=== PATIENT | female | born 1945 | race Caucasian/White ===

== ENCOUNTER → 2023-12-12 13:58 | Outpatient (REF) | payer OTHER, SELFPAY ==
[2023-12-12 16:15] LABS: % Basophils 0.6 % (0-2); % Immature Granulocytes 0.2 % (0-0.5); % Lymphocytes 33.6 % (20.5-51.1); % Neutrophils 55.6 % (42.2-75.2); Absolute Basophils 0.1 10^3/uL (0-0.2); Absolute Eosinophils 0.2 10^3/uL (0-0.7); Absolute Monocytes 0.7 10^3/uL (0.1-0.6); Absolute Neutrophils 4.9 10^3/uL (1.4-6.5); Hematocrit 43.4 % (37.0-47.0); Hemoglobin 14.6 g/dL (12.0-16.0); Mean Corp Hgb Conc. 33.6 g/dL (33.0-37.0); Mean Corpuscular Volume 86.3 fL (81.0-99.0); Mean Platelet Volume 10.7 fL (7.4-10.4); Nucleated Red Blood Cells % 0 %; Platelet Count 291 10^3/uL (130-400); Red Blood Cell Count 5.03 10^6/uL (4.20-5.40); Red Cell Dist. Width 14.8 % (11.5-14.5); White Blood Cell Count 8.8 10^3/uL (4.8-10.8)
[2023-12-12 16:43] LABS: ALT (SGPT) 23 U/L (0-35); AST (SGOT) 32 U/L (14-36); Albumin 4.3 g/dl (3.5-5.0); Alkaline Phosphatase 87 U/L (38-126); Blood Urea Nitrogen 13 mg/dl (7-17); Calcium 9.7 mg/dl (8.4-10.2); Carbon Dioxide 29 mmol/L (22-30); Chloride 102 mmol/L (98-107); Glucose 92 mg/dl (70-99); HDL Cholesterol 63 mg/dl; LDL Cholesterol, Calculated 31 mg/dl; Potassium 3.9 mmol/L (3.5-5.1); Sodium 138 mmol/L (135-145); Total Bilirubin 0.5 mg/dl (0.2-1.3); Total Cholesterol 134 mg/dl (50-199); Total Protein 7.1 g/dl (6.3-8.2); Triglyceride 203 mg/dl (10-149); Very Low Density Lipoprotein 40 mg/dl (0-30); eGFR > 60.00
[2023-12-12 17:11] LABS: TSH Reflex To Free T4 2.21 uIU/ml (0.47-4.68)
== END ==
LOC: REG 13:58
PROVIDERS: ATTENDING PHYSICIAN Nurse Practitioner Family
DX: Z09 Encounter for follow-up examination after completed treatment for conditions other than malignant neoplasm (principal); J10.1 Influenza due to other identified influenza virus with other respiratory manifestations; R35.0 Frequency of micturition; R53.1 Weakness
CPT/HCPCS: 36415; 80053; 80061; 84443; 85025

== ENCOUNTER → 2024-10-11 10:22 | Outpatient (REF) | payer OTHER, SELFPAY ==
[2024-10-11 11:32] LABS: % Basophils 0.4 % (0-2); % Eosinophils 0.4 % (0-6); % Immature Granulocytes 0.3 % (0-0.5); % Lymphocytes 19.9 % (20.5-51.1); % Monocytes 7.5 % (1.7-9.3); % Neutrophils 71.5 % (42.2-75.2); Absolute Lymphocytes 2.2 10^3/uL (1.2-3.4); Absolute Monocytes 0.8 10^3/uL (0.1-0.6); Absolute Neutrophils 8.1 10^3/uL (1.4-6.5); Hematocrit 48.7 % (37.0-47.0); Hemoglobin 16.1 g/dL (12.0-16.0); Mean Corp Hgb Conc. 33.1 g/dL (33.0-37.0); Mean Corpuscular Hgb 28.9 pg (27.0-31.0); Mean Corpuscular Volume 87.4 fL (81.0-99.0); Mean Platelet Volume 10.1 fL (7.4-10.4); Nucleated Red Blood Cells % 0 %; Platelet Count 312 10^3/uL (130-400); Red Blood Cell Count 5.57 10^6/uL (4.20-5.40); Red Cell Dist. Width 13.1 % (11.5-14.5); White Blood Cell Count 11.2 10^3/uL (4.8-10.8)
[2024-10-11 12:41] LABS: Glycohemoglobin (HgbA1c) 5.6 % (4.0-5.6)
[2024-10-11 14:24] LABS: TSH Reflex To Free T4 3.68 uIU/ml (0.47-4.68)
[2024-10-11 14:43] LABS: Vitamin B12 537 pg/ml (239-931)
== END ==
LOC: REG 10:22
PROVIDERS: ATTENDING PHYSICIAN Nurse Practitioner Primary Care
DX: R41.0 Disorientation, unspecified (principal); R53.83 Other fatigue; R73.03 Prediabetes; K86.2 Cyst of pancreas
CPT/HCPCS: 36415; 82607; 83036; 84443; 85025

== ENCOUNTER → 2024-10-16 10:53 | Outpatient (REF) | payer OTHER, SELFPAY ==
[2024-10-16 12:43] LABS: ALT (SGPT) 30 U/L (0-35); AST (SGOT) 35 U/L (14-36); Albumin 4.9 g/dl (3.5-5.0); Alkaline Phosphatase 79 U/L (38-126); Blood Urea Nitrogen 16 mg/dl (7-17); Calcium 10.8 mg/dl (8.4-10.2); Carbon Dioxide 24 mmol/L (22-30); Chloride 100 mmol/L (98-107); Glucose 106 mg/dl (70-99); Potassium 4.8 mmol/L (3.5-5.1); Sodium 137 mmol/L (135-145); Total Bilirubin 0.5 mg/dl (0.2-1.3); Total Protein 7.6 g/dl (6.3-8.2); eGFR 51.75
== END ==
LOC: REG 10:53
PROVIDERS: ATTENDING PHYSICIAN Nurse Practitioner Primary Care
DX: E78.2 Mixed hyperlipidemia (principal)
CPT/HCPCS: 36415; 80053

== ENCOUNTER → 2024-11-01 11:08 | Outpatient (REF) | payer OTHER, SELFPAY ==
[2024-11-01 11:54] LABS: Ionized Calcium 1.28 mMOL/L (1.15-1.33)
[2024-11-01 11:55] LABS: % Basophils 0.2 % (0-2); % Eosinophils 0.7 % (0-6); % Immature Granulocytes 0.4 % (0-0.5); % Lymphocytes 24.2 % (20.5-51.1); % Monocytes 8.3 % (1.7-9.3); % Neutrophils 66.2 % (42.2-75.2); Absolute Eosinophils 0.1 10^3/uL (0-0.7); Absolute Lymphocytes 2.4 10^3/uL (1.2-3.4); Absolute Monocytes 0.8 10^3/uL (0.1-0.6); Absolute Neutrophils 6.7 10^3/uL (1.4-6.5); Hematocrit 45.2 % (37.0-47.0); Hemoglobin 15.4 g/dL (12.0-16.0); Mean Corp Hgb Conc. 34.1 g/dL (33.0-37.0); Mean Corpuscular Hgb 29.3 pg (27.0-31.0); Mean Corpuscular Volume 86.1 fL (81.0-99.0); Mean Platelet Volume 10.7 fL (7.4-10.4); Nucleated Red Blood Cells % 0 %; Platelet Count 243 10^3/uL (130-400); Red Blood Cell Count 5.25 10^6/uL (4.20-5.40); Red Cell Dist. Width 13.2 % (11.5-14.5); White Blood Cell Count 10.1 10^3/uL (4.8-10.8)
[2024-11-01 12:33] LABS: C-Reactive Protein < 5.00 mg/L (0.0-10.00)
[2024-11-01 12:34] LABS: ALT (SGPT) 21 U/L (0-35); AST (SGOT) 26 U/L (14-36); Albumin 4.4 g/dl (3.5-5.0); Alkaline Phosphatase 83 U/L (38-126); Blood Urea Nitrogen 16 mg/dl (7-17); Calcium 10.2 mg/dl (8.4-10.2); Carbon Dioxide 24 mmol/L (22-30); Chloride 104 mmol/L (98-107); Glucose 86 mg/dl (70-99); Sodium 139 mmol/L (135-145); Total Bilirubin 0.6 mg/dl (0.2-1.3); Total Protein 7.1 g/dl (6.3-8.2); eGFR > 60.00
[2024-11-01 12:51] LABS: Vitamin D, 25-OH*** 115 ng/mL (30-80)
[2024-11-01 13:31] LABS: Erythrocyte Sed Rate 5 mm/hour (0-20)
[2024-11-02 09:42] LABS: Intact PTH 48.1 pg/ml (13.6-85.8)
== END ==
LOC: REG 11:08
PROVIDERS: ATTENDING PHYSICIAN Nurse Practitioner Primary Care
DX: D72.829 Elevated white blood cell count, unspecified (principal); E83.52 Hypercalcemia
CPT/HCPCS: 36415; 80053; 82306; 82330; 83970; 85025; 85652; 86140

== ENCOUNTER → 2024-12-13 10:43 | Outpatient (REF) | payer OTHER, SELFPAY | LOC: PAVMRI 10:43 | PROVIDERS: ATTENDING PHYSICIAN Nurse Practitioner Primary Care; FAMILY PHYSICIAN Internal Medicine | DX: K86.2 Cyst of pancreas (principal) | CPT/HCPCS: 74183; A9575 ==

== ENCOUNTER 2025-02-21 11:05 | Emergency (ER) | payer OTHER, SELFPAY ==
[2025-02-21 11:19] VITALS: BP 135/79
--- NOTE | 2025-02-21 12:10 | ED.GENMED ---
History of Present Illness
General
Chief Complaint: Dizziness
Source: patient
Exam Limitations: none
Time Seen by Provider: 02/21/25 12:06
Nursing documentation reviewed up to this point in time: agreed with
History of Present Illness
History of Present Illness:
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 Has reports patient has had gradual decline she reports she
is followed by Dr. De Jesus for neuro has been reports today patient felt very weak. reports she had difficulty walking because of weakness. He also reported patient was complaining of shortness of breath
They called primary care office and they recommended she go to the ER.
Patient presents awake alert she is confused however able to get some words out. She does feel' weak.' And complained of pressure on her chest however is having difficulty telling me when this started and specifics.
Past History
Past History
ED Past Medical History: Hypothyroidism, Other (Dizziness,) and Other (diverticulitis)
ED Past Surgical History: Appendectomy, (X 1), Orthopedic and Other (partial colectomy 06/12/20 w/ colostomy. Colostomy reversal 09/08/20)
Social History
Tobacco: Former smoker (Quit 8 years ago, 25 pack year history)
Alcohol: None
Drug: None
Personal:
Living: with family
Family History
Family History: Negative CAD
Review of Systems
Review of Systems
Allergies reviewed?: Yes
Unable to obtain full review of systems at this time due to: other (hx of memory issues )
Other source history: family
All Other Systems: ROS reviewed and negative except as documented in HPI and ROS
Constitutional: Reports fatigue; Denies fever
EENT: Reports no symptoms
Respiratory: Reports no symptoms
Cardiac: Reports no symptoms
ABD/GI: Reports no symptoms
Musculoskeletal: Reports no symptoms
Skin: Reports no symptoms
Neurological: Reports other (chronic memory issues )
Psychiatric: Reports no symptoms
Phy Exam
General Physical Exam
General Presentation: no apparent distress
General age: appears stated age
General Skin: warm and dry
General Habitus: normal
General Mental: alert
General Hydration: appears well hydrated
Cardiovascular Exam
Cardiovascular Exam: regular rate/rhythm, no murmur and normal peripheral pulses
Pulmonary Exam
Pulmonary Exam: lungs clear and no respiratory distress
Neurological Exam
Neurological Exam: alert and oriented x3
Musculoskeletal Exam
Musculoskeletal Exam: full ROM
Skin Exam
Skin Exam: normal color and warm/dry
Psychiatric Exam
Psychiatric Exam: normal mood/affect
Course
Orders/Labs/Results
Orders:
Orders
02/21/25 11:25
Electrocardiogram (*1) Urgent
Reason for Study: Vertigo / Dizzy
EKG- Treatment ONCE
02/21/25 12:10
IV Insert/Care/Rem.- Treatment PRN
02/21/25 12:13
Basic Metabolic Panel Urgent
Complete Blood Count/With Diff Urgent
02/21/25 12:27
Chest [CR Chest - 2 Views ] Urgent
Comment:
Reason For Exam: cp
02/21/25 12:28
CT Head W/o Iv Contrast Urgent
Comment:
Reason For Exam: dizziness
02/21/25 12:38
Troponin I Urgent
Urinalysis Reflex To Culture Urgent
Date Specimen was Collected: 02/21/25
Time Specimen was Collected: 12:26
Urine Microscopic Reflex Cult Urgent
Urine Culture Urgent
KARINA Source: U
Specimen Description:
Date Specimen was Collected: 02/21/25
Time Specimen was Collected: 12:26
Abnormal Lab Results
02/21/25 02/21/25
12:13 12:38
WBC 12.7 H 10^3/uL
(4.8-10.8)
Absolute Neuts (auto) 8.9 H 10^3/uL
(1.4-6.5)
Absolute Monos (auto) 0.8 H 10^3/uL
(0.1-0.6)
BUN 18 H mg/dl
(7-17)
Urine Ketones 1+ A
(Negative)
Ur Occult Blood Reflex 2+ A
(Negative)
Leukocyte Esterase Rfl 1+ A
(Negative)
Urine Albumin (Reflex) 1+ A
(Neg - Trace)
02/21/25 12:13
02/21/25 12:13
Vital Signs
Initial and Last Documented VS:
Initial Vital Signs
Temp Pulse Resp BP Pulse Ox
97.4 F 92 18 135/79 95
02/21/25 11:19 02/21/25 11:19 02/21/25 11:19 02/21/25 11:19 02/21/25 11:19
Last Documented Vital Signs
Temp Pulse Resp BP Pulse Ox
97.4 F 92 18 135/79 95
02/21/25 11:19 02/21/25 11:19 02/21/25 11:19 02/21/25 11:19 02/21/25 11:19
MDM/Problems Addressed
Differential Diagnosis Includes:
Not limited to anemia dehydration, infection, chronic progressive worsening of pre-existing condition(Parkinson-like condition)
MDM/Problems Addressed:
As documented patient is a 80-year-old female who presents to the ER for evaluation. As documented patient has had issues with memory with no true diagnosis that she is on carbidopa prescribed and neurology for this with no definitive diagnosis of
Parkinson's.
Patient's reported patient has not difficulty walking today patient presents awake alert she has intermittent confused conversation however is in no acute distress. She is awake she is alert she follows commands. reports no recent
fevers or illness. She is afebrile here white count minimally elevated however no recent URI symptoms. Patient denies any pain with urination. No obvious UTI. Her lungs are clear she is not hypoxic nontachycardic
Negative chest x-ray, normal electrolytes potassium clotted however with normal testing will not restrict patient normal EKG, head CT and chest x-ray negative; patient has no focal neurological deficits.
Patient was able to ambulate back and forth to the bathroom ports patient looks much better now likely declining of chronic condition. I did review with patient's the importance of close outpatient follow-up with family
doctor/neuro. Stable for discharge home.
Chronic conditions affecting care:
Memory issues Parkinson-like condition
*Critical Care Note
Total Time (30-74mins, 75-104mins- exclusive of procedures): Not Applicable
ED Attending Note
-
Portions of this chart may have been created with voice recognition software.� Occasional wrong word or��sound alike� substitutions may have occurred due to the inherent limitations of voice recognition software.
Discharge Plan
Departure
Patient Disposition: Home (Routine Discharge)
Date of Disposition: 02/21/25
Time of Disposition: 15:18
Patient with high blood pressure during this ER visit?: Yes
Condition: Fair
Covid-19: Not Applicable
Discharge Problem:
Weakness
Instructions: Weakness, BLOOD PRESSURE
Prescriptions:
No Action
atorvastatin 40 MG tablet
40 mg PO DAILY
famotidine 20 MG tablet
20 mg PO HSPRN PRN (Reason: REFLUX)
calcium carbonate 500 MG tablet
1,000 mg PO DAILY
levothyroxine 50 MCG tablet
50 mcg PO DAILY
cholecalciferol (vitamin D3) 1,000 UNITS tablet
1,000 units PO DAILY
multivitamin with folic acid [Tab-A-Radha] 1 TABLET tablet
1 tab PO DAILY
donepezil 5 mg Tablet
5 mg PO HS
pantoprazole 40 mg Tablet,Delayed Release (Dr/Ec)
40 mg PO DAILY
escitalopram oxalate 5 mg Tablet
5 mg PO DAILY
docusate sodium 100 mg Capsule
100 mg PO BID Qty: 0 0RF
polyethylene glycol 3350 [HealthyLax] 17 gram Powder In Packet
17 g PO DAILY Qty: 0 0RF
acetaminophen 325 mg Tablet
650 mg PO Q4HPRN PRN (Reason: mild pain/SOTO/temp> 100.4F) Qty: 0 0RF
Referrals:
UNKNOWN - PT NOT,INTERVIEWE [Unknown Provider] -
Activity Restrictions/Additional Instructions:
Follow-up closely with family doctor /neurology in the next several days for reevaluation.
Return if any worsening of symptoms.
Interventions
Interventions:
*Risk Screen - Suicide Last Done: 02/21/25 11:19
*General Assessment Last Done: 02/21/25 11:19
*Neglect/Abuse Screening Last Done: 02/21/25 11:19
*ED- Fall Risk Assessment Last Done: 02/21/25 12:03
*ED COVID-19 Vaccine History Last Done: 02/21/25 12:03
ED- Neurological Assessment Last Done: 02/21/25 12:03
ED Swallowing Screen Last Done: 02/21/25 12:20
Discharge Date and Time
Print Language: TURKISH
[2025-02-21 12:48] LABS: % Basophils 0.4 % (0-2); % Eosinophils 0.6 % (0-6); % Immature Granulocytes 0.2 % (0-0.5); % Lymphocytes 22.2 % (20.5-51.1); % Monocytes 6.1 % (1.7-9.3); % Neutrophils 70.5 % (42.2-75.2); Absolute Basophils 0.1 10^3/uL (0-0.2); Absolute Eosinophils 0.1 10^3/uL (0-0.7); Absolute Lymphocytes 2.8 10^3/uL (1.2-3.4); Absolute Monocytes 0.8 10^3/uL (0.1-0.6); Absolute Neutrophils 8.9 10^3/uL (1.4-6.5); Hematocrit 46.6 % (37.0-47.0); Hemoglobin 15.7 g/dL (12.0-16.0); Mean Corp Hgb Conc. 33.7 g/dL (33.0-37.0); Mean Corpuscular Hgb 29.3 pg (27.0-31.0); Mean Corpuscular Volume 87.1 fL (81.0-99.0); Nucleated Red Blood Cells % 0 %; Red Blood Cell Count 5.35 10^6/uL (4.20-5.40); Red Cell Dist. Width 13.5 % (11.5-14.5); White Blood Cell Count 12.7 10^3/uL (4.8-10.8)
[2025-02-21 13:02] LABS: Blood Urea Nitrogen 18 mg/dl (7-17); Carbon Dioxide 26 mmol/L (22-30); Chloride 107 mmol/L (98-107); Glucose 94 mg/dl (70-99); Sodium 140 mmol/L (135-145); eGFR > 60.00
[2025-02-21 13:03] LABS: Calcium 10.2 mg/dl (8.4-10.2)
[2025-02-21 13:22] LABS: Troponin I < 0.012 ng/ml
[2025-02-21 13:34] LABS: Urine Albumin 1+ (Neg - Trace); Urine Bilirubin Negative (Negative); Urine Character Clear (Clear); Urine Color Yellow; Urine Glucose Negative (Negative); Urine Ketone 1+ (Negative); Urine Leukocyte 1+ (Negative); Urine Nitrite Negative (Negative); Urine Occult Blood 2+ (Negative); Urine Specific Gravity 1.025 (<1.030); Urine Urobilinogen Negative (Neg - 1+)
[2025-02-21 13:46] LABS: Mean Platelet Volume 10.4 fL (7.4-10.4); Platelet Count 254 10^3/uL (130-400)
[2025-02-21 14:30] LABS: Urine Mucus Many
[2025-02-21 14:31] LABS: Urine Amorphous Seen; Urine Calcium Oxalate Crystals Seen; Urine Red Blood Cell 0-2 /HPF (0-2)
[2025-02-21 14:32] LABS: Urine White Cell 0-2 /HPF (0-5)
[2025-02-21 15:18] VITALS: BP 182/68
== END 2025-02-21 15:29 | disposition home or self-care (01) ==
LOC: EMR 11:05
PROVIDERS: Nurse Practitioner; EMERGENCY PHYSICIAN Emergency Medicine; FAMILY PHYSICIAN Internal Medicine
DX: R53.1 Weakness (principal); E03.9 Hypothyroidism, unspecified; Z87.891 Personal history of nicotine dependence; Z90.49 Acquired absence of other specified parts of digestive tract; Z93.3 Colostomy status
CPT/HCPCS: 99284; 70450; 71046; 80048; 81003; 81015; 84484; 85025; 87086; 93005

== ENCOUNTER 2025-03-27 07:25 | Emergency (ER) | payer OTHER, SELFPAY ==
[2025-03-27 07:31] VITALS: BP 194/83; BMI 18.7
--- NOTE | 2025-03-27 07:59 | ED.GENMED ---
History of Present Illness
General
Chief Complaint: Nose Bleed
Source: patient and spouse
Exam Limitations: none
Time Seen by Provider: 03/27/25 07:36
Nursing documentation reviewed up to this point in time: agreed with
History of Present Illness
History of Present Illness:
80-year-old female with history as noted presents for evaluation of epistaxis. Patient is accompanied by her who provides collateral history. Apparently patient has had on and off epistaxis for the past few months. No trauma reported.
This morning woke up with bleeding from right nare. Bleeding was constant until just prior to ER arrival and currently patient appears to be hemostatic. She was swallowing some blood earlier but no longer. No bleeding from the left nare. She
denies any other complaints. She was noted to be hypertensive�known history of hypertension, reports compliance with medicine. She is not on a blood thinner.
Past History
Past History
ED Past Medical History: Hypothyroidism, Other (Dizziness,) and Other (diverticulitis)
ED Past Surgical History: Appendectomy, (X 1), Orthopedic and Other (partial colectomy 06/12/20 w/ colostomy. Colostomy reversal 09/08/20)
Social History
Tobacco: Former smoker (Quit 8 years ago, 25 pack year history)
Alcohol: None
Drug: None
Personal:
Living: with family
Family History
Family History: Negative CAD
Review of Systems
Review of Systems
All Other Systems: ROS reviewed and negative except as documented in HPI and ROS
EENT: Reports other (Epistaxis)
Respiratory: Denies trouble breathing
Cardiac: Denies chest pain
ABD/GI: Denies nausea or vomiting
Neurological: Denies dizzy
Phy Exam
Physical Exam
Physical Exam:
General: Well appearing and non-toxic
HEENT: protecting airway, no blood noted in the posterior oropharynx; left nare clear; exam of the right nare patient has clot formed on the right nasal septum over small abrasion; no active bleeding
Neck: appears supple,
CV: No evidence of cyanosis
Resp: No accessory muscle use
Abd: Non-distended
Extremities: No deformities
Neuro: Alert
Psych: Normal affect
Skin: Intact
Scores
Heart Failure Risk
Heart Failure Risk Score: Not Applicable
Heart Score for Chest Pain Patients
STEMI patient?: Not applicable
Withdrawal Assessment of Alcohol
Withdrawal Assessment Completed?: Not applicable
Course
Orders/Labs/Results
Orders:
Orders
03/27/25 08:45
Oxymetazoline HCl [Afrin Nasal Bruno] 30 sprays .ROUTE .[facility]
Vital Signs
Initial and Last Documented VS:
Initial Vital Signs
Temp Pulse Resp BP Pulse Ox
36.4 C 74 18 194/83 97
03/27/25 07:31 03/27/25 07:31 03/27/25 07:31 03/27/25 07:31 03/27/25 07:31
Last Documented Vital Signs
Temp Pulse Resp BP Pulse Ox
36.4 C 74 18 194/83 97
03/27/25 07:31 03/27/25 07:31 03/27/25 07:31 03/27/25 07:31 03/27/25 08:05
MDM/Problems Addressed
Differential Diagnosis Includes:
Anterior epistaxis
MDM/Problems Addressed:
80-year-old female presents with anterior epistaxis from the right nares�this apparently has been an off-and-on issue for the past few months. She is currently hemostatic after holding pressure on the way to the hospital. Will plan to observe for
rebleeding. If she remains hemostatic she can be discharged with ENT referral given off-and-on nosebleeds for months. She was noted to be hypertensive in triage�blood pressure improving without intervention we will continue to monitor this.
Clinical reassessment patient remains hemostatic�continue to monitor.
Patient has remained hemostatic throughout 90-minute ER observation. Stable for discharge. Spoke to patient and about measures to take should bleeding recur. We spoke about follow-up plan with ENT and return precautions�we specifically
discussed elevated blood pressure and need for PCP follow-up. All questions answered.
*Pulse Oximetry
SaO2: 97
Oxygen Mode of Delivery: Room air
Patient hypoxic: no (97%)
*Critical Care Note
Total Time (30-74mins, 75-104mins- exclusive of procedures): Not Applicable
Data Reviewed
Review of Other/Old Records Reveals: Records
Source: patient and spouse
ED Attending Note
-
Portions of this chart may have been created with voice recognition software.� Occasional wrong word or��sound alike� substitutions may have occurred due to the inherent limitations of voice recognition software.
Discharge Plan
Departure
Patient Disposition: Home (Routine Discharge)
Date of Disposition: 03/27/25
Time of Disposition: 08:55
Patient with high blood pressure during this ER visit?: Yes
Discharge Problem:
Acute anterior epistaxis, HTN (hypertension)
Instructions: Nosebleeds (DC), BLOOD PRESSURE
Prescriptions:
No Action
atorvastatin 40 MG tablet
40 mg PO DAILY
famotidine 20 MG tablet
20 mg PO HSPRN PRN (Reason: REFLUX)
calcium carbonate 500 MG tablet
1,000 mg PO DAILY
levothyroxine 50 MCG tablet
50 mcg PO DAILY
cholecalciferol (vitamin D3) 1,000 UNITS tablet
1,000 units PO DAILY
multivitamin with folic acid [Tab-A-Radha] 1 TABLET tablet
1 tab PO DAILY
donepezil 5 mg Tablet
5 mg PO HS
pantoprazole 40 mg Tablet,Delayed Release (Dr/Ec)
40 mg PO DAILY
escitalopram oxalate 5 mg Tablet
5 mg PO DAILY
docusate sodium 100 mg Capsule
100 mg PO BID Qty: 0 0RF
polyethylene glycol 3350 [HealthyLax] 17 gram Powder In Packet
17 g PO DAILY Qty: 0 0RF
acetaminophen 325 mg Tablet
650 mg PO Q4HPRN PRN (Reason: mild pain/SOTO/temp> 100.4F) Qty: 0 0RF
Referrals:
Dex Costello MD [Active, Otology] - Call in 1-3 days for appt
Donny Tran DO [Family Provider, Internal Medicine] - Follow up in 5-7 days
Activity Restrictions/Additional Instructions:
Thank you for visiting the Emergency Department at [facility].
1. Please schedule a follow up appointment as directed. Call first thing tomorrow morning to make an appointment.
2. If indicated, please take your medications as instructed and indicated on discharge paperwork.
3. If any of your symptoms do not improve, or persist, or become more severe within 6-12 hours, please return to the emergency department for further care.
4. Please return to the emergency department if you develop a headache, neck pain/stiffness, fever greater than 100.4F, chest pain, shortness of breath, persistent nausea, vomiting, slurred speech, difficulty walking, numbness/tingling, weakness,
signs of infection or any other symptoms that are worrisome to you.
Please call [phone] if you have any questions.
Interventions
Interventions:
*Risk Screen - Suicide Last Done: 03/27/25 07:31
*General Assessment Last Done: 03/27/25 07:31
*Neglect/Abuse Screening Last Done: 03/27/25 07:31
*ED COVID-19 Vaccine History Last Done: 03/27/25 07:31
Discharge Date and Time
Print Language: ZAMBIAN
[2025-03-27 08:00] VITALS: BP 169/77
== END 2025-03-27 09:24 | disposition home or self-care (01) ==
LOC: EMR 07:25
PROVIDERS: EMERGENCY PHYSICIAN Emergency Medicine; FAMILY PHYSICIAN Internal Medicine
DX: R04.0 Epistaxis (principal); I10 Essential (primary) hypertension; E03.9 Hypothyroidism, unspecified; Z87.891 Personal history of nicotine dependence; Z90.49 Acquired absence of other specified parts of digestive tract; Z93.3 Colostomy status
CPT/HCPCS: 99282